=== PATIENT | male | born 1960 | race Asian ===

== ENCOUNTER 2017-09-18 13:38 | Emergency (ER) | payer BC ==
[2017-09-18 14:04] LABS: #Lymphocytes 0.9 thou/uL (1.20-3.40); #Monocytes 0.1 thou/uL (0.11-0.59); #Neutrophils 11.1 thou/uL (1.40-6.50); %Basophils 0.2 % (0.0-1.0); %Eosinophils 0.3 % (0.0-10.0); %Lymphocytes 7.4 % (21.0-51.0); %Monocytes 0.8 % (0.0-10.0); %Neutrophils 91.3 % (42.0-75.0); Hemoglobin 10.8 g/dL (14.0-18.0); Mean Corpuscular HGB CONC 35.3 g/dL (32.0-36.0); Mean Corpuscular Hemoglobin 33.8 pg (27.0-31.0); Mean Corpuscular Volume 95.6 fl (80.0-94.0); Mean Platelet Volume 5.6 fL (7.4-10.4); Platelet Count 435 thou/uL (130-400); White Blood Cell (WBC) Count 12.2 thou/uL (4.8-10.8)
[2017-09-18 14:28] LABS: ALT (SGPT) 30 U/L (8-55); AST (SGOT) 32 U/L (5-34); Albumin 4.2 g/dL (3.5-5.0); Alkaline Phosphatase 100 U/L (40-150); Anion Gap 12 mmol/L (10-20); BUN (Urea Nitrogen) 14 mg/dL (8.4-25.7); Bilirubin, Total 0.9 mg/dL (0.2-1.2); Calc. Creatinine Clearance 0 mL/min (70-130); Calcium 9.3 mg/dL (7.8-10.44); Carbon Dioxide 24 mmol/L (22-29); Chloride 99 mmol/L (98-107); Estimated GFR-MDRD 69; Globulin 3.7 g/dL (2.4-3.5); Glucose 96 mg/dL (70-105); Potassium 3.8 mmol/L (3.5-5.1); Protein, Total 7.9 g/dL (6.0-8.3); Sodium 131 mmol/L (136-145)
--- NOTE | 2017-09-18 14:43 | RAD ---
CHEST ONE VIEW: History: Fever. Comparison: 02-28-10 FINDINGS: Cardiac silhouette is magnified by projection and upper limits of normal in size. Pulmonary vasculatu re is also upper limits of normal. Mediastinum is midline. Elevation of the medial aspect of the righ t hemidiaphragms is stable. No lobar consolidation or pneumothorax are evident. conveyor monitor leads overlie the chest. IMPRESSION: 1. Borderline pulmonary vascular congestion and cardiomegaly. No florid edema is apparent. 2. No lobar consolidation. POS: [facility]
[2017-09-18 14:48] LABS: Bilirubin Negative (Negative); Blood, Urine Negative (Negative); Clarity CLEAR (Clear); Glucose, Urine (Dipstick) Negative (Negative); Leukocyte Negative (Negative); Nitrite Negative (Negative); Protein, Urine (Dipstick) 30 mg/dL (Neg-Trace); Specific Gravity, Urine 1.013 (1.002-1.036); Urobilinogen 0.2 mg/dL (0.2-1.0)
[2017-09-18 14:51] LABS: Bacteria/HPF None Seen HPF (None Seen); Hyaline Casts/LPF 0-3 HYALINE CAST LPF (0-3 Hyaline); RBC/HPF None Seen HPF (0-3); Squamous Epithelial None Seen HPF (0-3); WBC/HPF None Seen HPF (0-3)
[2017-09-18] MEDS ORDERED: Azithromycin 250 MG TAB ONE (15:28)
== END 2017-09-18 15:35 | disposition home or self-care (01) ==
LOC: ERS 13:38
DX: R50.9 Fever, unspecified (principal); R05 Cough; I10 Essential (primary) hypertension; E78.5 Hyperlipidemia, unspecified; Z79.899 Other long term (current) drug therapy
CPT/HCPCS: 71010; 80053; 81003; 81015; 83605; 85025; 87040; 87086; 87804; 96360

== ENCOUNTER 2019-03-17 13:38 | Outpatient (CLI) | payer BC ==
--- NOTE | 2019-03-17 14:08 | ULT ---
VENOUS DOPPLER ULTRASOUND OF THE LEFT LOWER EXTREMITY: HISTORY: Left lower extremity pain and edema. TECHNIQUE: Smlal scale ultrasound with color flow and spectral Doppler imaging of the deep venous system of the l eft lower extremity is performed. FINDINGS: There is good flow, compression, and augmentation noted in the left common femoral, femoral, deep fem oral, popliteal, posterior tibial, and greater saphenous veins. IMPRESSION: No evidence of deep vein thrombosis in the left lower extremity. POS: [facility]
== END 2019-03-17 13:39 | disposition home or self-care (01) ==
LOC: ULT 13:38
PROVIDERS: ATTEND Internal Medicine Nephrology
DX: Z48.22 Encounter for aftercare following kidney transplant (principal)

== ENCOUNTER 2019-03-18 11:41 | Emergency (ER) | payer BC ==
[2019-03-18 12:17] LABS: #Eosinphils 0.1 thou/uL (0.0-0.7); #Lymphocytes 0.9 thou/uL (1.20-3.40); #Monocytes 0.6 thou/uL (0.11-0.59); %Basophils 0.4 % (0.0-1.0); %Eosinophils 0.9 % (0.0-10.0); %Lymphocytes 16.6 % (21.0-51.0); %Monocytes 11.4 % (0.0-10.0); %Neutrophils 70.7 % (42.0-75.0); Hemoglobin 12.4 g/dL (14.0-18.0); Mean Corpuscular HGB CONC 33.9 g/dL (32.0-36.0); Mean Corpuscular Hemoglobin 30.8 pg (27.0-31.0); Mean Corpuscular Volume 90.8 fL (78.0-98.0); Mean Platelet Volume 6.3 fL (7.4-10.4); Platelet Count 331 thou/uL (130-400); Red Blood Cell (RBC) Count 4.02 mill/uL (4.70-6.10); White Blood Cell (WBC) Count 5.6 thou/uL (4.8-10.8)
[2019-03-18] MEDS ORDERED: Clindamycin/D5W 900 mg/50 ml Premix Bag ONE (12:29)
[2019-03-18 12:47] LABS: ALT (SGPT) 103 U/L (8-55); AST (SGOT) 75 U/L (5-34); Albumin 3.7 g/dL (3.5-5.0); Alkaline Phosphatase 159 U/L (40-150); Anion Gap 13 mmol/L (10-20); BUN (Urea Nitrogen) 11 mg/dL (8.4-25.7); Bilirubin, Total 0.7 mg/dL (0.2-1.2); Calc. Creatinine Clearance 0 mL/min (70-130); Calcium 9.4 mg/dL (7.8-10.44); Carbon Dioxide 23 mmol/L (22-29); Chloride 100 mmol/L (98-107); Estimated GFR-MDRD 78; Globulin 3.7 g/dL (2.4-3.5); Glucose 115 mg/dL (70-105); Potassium 3.7 mmol/L (3.5-5.1); Protein, Total 7.4 g/dL (6.0-8.3); Sodium 132 mmol/L (136-145)
--- NOTE | 2019-03-18 12:55 | RAD ---
LEFT FOOT 3 VIEWS: HISTORY: Foot swelling. Evaluate for gout. FINDINGS: Some minimal arthritic changes of the 1st metatarsal phalangeal joint, but no plain film evidence harry t would definitely suggest gout. No soft tissue calcifications or erosive change. Calcaneal spur at the plantar fascia insertion is noted. Soft tissue swelling is seen mainly on the dorsum of the vidya t and there are vascular calcifications seen. IMPRESSION: No definite evidence for gout. POS: [facility]
[2019-03-18] MEDS ORDERED: Senokot S 8.6-50 MG TAB PO PRN (16:14)
[2019-03-18] MEDS ORDERED: Bisacodyl 10 MG SUPP PR PRN (16:14)
[2019-03-18] MEDS ORDERED: Guaifenesin DM 100-10/5 ML UDCUP PO PRN (16:14)
[2019-03-18] MEDS ORDERED: Acetaminophen 325 MG TAB PO PRN (16:14)
[2019-03-18] MEDS ORDERED: cefTRIAXone\\ROCEPHIN 1 GM in Sodium Chloride 0.9% 100 ML IVPB SCH (17:00)
[2019-03-18] MEDS ORDERED: cycloSPORINE, Modified 25 MG CAP PO SCH (21:00)
[2019-03-18] MEDS ORDERED: Vancomycin HCl 1 GM in Premix Bag 1 BAG IVPB SCH (21:00)
[2019-03-18] MEDS ORDERED: Famotidine 20 MG TAB PO SCH (21:00)
[2019-03-18] MEDS ORDERED: CYCLOSPORINE PO SCH (21:00)
[2019-03-19] MEDS ORDERED: Enoxaparin Sodium 40 MG/0.4 ML SYRINGE SC SCH (09:00)
[2019-03-19] MEDS ORDERED: Metoprolol Tartrate 25 MG TAB PO SCH (09:00)
[2019-03-19] MEDS ORDERED: cycloSPORINE, Modified 100 MG CAP PO SCH (09:00)
[2019-03-19] MEDS ORDERED: predniSONE 5 MG TAB PO SCH (09:00)
== END 2019-03-18 14:46 | disposition home or self-care (01) ==
LOC: ERS 11:41
DX: L03.116 Cellulitis of left lower limb (principal); E78.5 Hyperlipidemia, unspecified; I10 Essential (primary) hypertension; Z79.899 Other long term (current) drug therapy
CPT/HCPCS: 36415; 80053; 84550; 85025; 85652; 86140; 87040; 96365; J0696; J3490

== ENCOUNTER 2022-01-30 10:17 | Outpatient (CLI) | payer BC ==
[2022-01-30 22:06] LABS: SARS-CoV-2 PCR by NAA Not Detected (NotDetected)
== END 2022-01-30 10:18 | disposition home or self-care (01) ==
LOC: LABBT 10:17
PROVIDERS: ATTEND Internal Medicine Nephrology
DX: Z20.822 Contact with and (suspected) exposure to COVID-19 (principal)
CPT/HCPCS: U0003; U0005

== ENCOUNTER → 2022-02-04 | Day surgery (SDC) | payer BC ==
[2022-02-04 10:06] LABS: INR-International Normal Ratio 0.9; PTT 28.6 sec (22.9-36.1); Prothrombin Time 12.1 sec (12.0-14.7)
== END | disposition home or self-care (01) ==
LOC: CT 09:37
PROVIDERS: ATTEND Internal Medicine Nephrology
PROC: 0TB03ZX Excision of Right Kidney, Percutaneous Approach, Diagnostic (ICD-10-PCS; principal; 2022-02-04)
DX: I12.9 Hypertensive chronic kidney disease with stage 1 through stage 4 chronic kidney disease, or unspecified chronic kidney disease (principal); N18.9 Chronic kidney disease, unspecified; E78.5 Hyperlipidemia, unspecified; Z79.52 Long term (current) use of systemic steroids; Z79.899 Other long term (current) drug therapy; Z94.0 Kidney transplant status
CPT/HCPCS: 50200; 77002; 85610; 85730; 88329